=== PATIENT | female | born 1990 | race Two or more races ===

== ENCOUNTER 2016-10-30 13:06 | Emergency (ER) | payer MEDICAID, OTHER ==
[~2016-10-30] VITALS: Ht 152.4 cm; Wt 76.5 kg
[2016-10-30 13:20] VITALS: BP 121/69; PULSE 101; RESP 16; TEMP 98.9; O2SAT 99
[2016-10-30] MEDS ORDERED: SODIUM CHLOR 0.9% 1000 ML INJ 1,000 ML IV SCH (13:46)
--- NOTE | 2016-10-30 13:57 | PD ---
HPI Chief Complaint: Abdominal Pain Time Seen by Provider: 13:53 Travel History International Travel<30 days: No Contact w/Intl Traveler<30days: No Traveled to known affect area: No History of Present Illness HPI 26-year-old female that presents to the ED for evaluation of abdominal pain, diarrhea and nausea. Per patient she's had this since yesterday. Per patient she has a history of IBS and she's used to pain but does feels little different. Per patient she has pain on her right shoulder to wrist all the way down to her back. Per patient she denies any heavy activities. Per patient the pain feels like a muscle spasm on the back which also has pain below the breasts bilaterally as well as on the left flank. Patient points to the left abdomen as area of pain. Mostly on the upper quadrants. She denies any chest pain. She denies any vomiting. Per patient she does not know she is as she is usually irregular but she does not use protection. She does not believe that she is. She has no allergies to medication. She's not taken anything for this. Per patient she has not vomited but the diarrhea is liquidy. She denies any urinary problems. No vaginal discharge or bleeding. Per patient her last nostril. Was a month ago and he was slight but this is her normal as she is usually is very irregular. PFSH Past Medical History Hx Anticoagulant Therapy: No Cardiovascular Problems: No Chemotherapy: No Cerebrovascular Accident: No Diabetes: No Respiratory: No ?: Unknown LMP: irregular period, had one last month Past Surgical History Hysterectomy: No Social History Alcohol Use: No Tobacco Use: No Substance Use: No Allergies-Medications (Allergen,Severity, Reaction): Coded Allergies: No Known Allergies (Unverified , 10/30/16) Reported Meds & Prescriptions Reported Meds & Active Scripts Active Plus Iron 29-1 mg ( Vit-Iron Carbonyl) 1 Tab Tab 1 Tab PO DAILY Reglan (Metoclopramide HCl) 5 Mg Tab 5 Mg PO QID PRN Reported Omeprazole 20 Mg Tab 20 Mg PO DAILY Dicyclomine (Dicyclomine HCl) 10 Mg Cap 10 Mg PO QID Review of Systems Except as stated in HPI: all other systems reviewed are Neg Physical Exam Narrative GENERAL: SKIN: Warm and dry. HEAD: Atraumatic. Normocephalic. EYES: Pupils equal and round. No scleral icterus. No injection or drainage. ENT: No nasal bleeding or discharge. Mucous membranes pink and moist. Tongue is midline. No uvula deviation. NECK: Trachea midline. No JVD. CARDIOVASCULAR: Regular rate and rhythm. No murmurs, S3, S4. RESPIRATORY: No accessory muscle use. Clear to auscultation. Breath sounds equal bilaterally. GASTROINTESTINAL: Abdomen soft, non-tender, nondistended. Hepatic and splenic margins not palpable. MUSCULOSKELETAL: Extremities without clubbing, cyanosis, or edema. No obvious deformities. Full range of motion of the upper and lower extremities bilaterally. 2+ pulses bilaterally. NEUROLOGICAL: Awake and alert. No obvious cranial nerve deficits. Motor grossly within normal limits. Five out of 5 muscle strength in the arms and legs. Normal speech. PSYCHIATRIC: Appropriate mood and affect; insight and judgment normal. Data Data Last Documented VS Vital Signs Date Time Temp Pulse Resp B/P Pulse Ox O2 Delivery O2 Flow Rate FiO2 10/30/16 13:20 98.9 101 16 121/69 99 Orders Complete Blood Count With Diff (10/30/16 13:46) Comprehensive Metabolic Panel (10/30/16 13:46) Lipase (10/30/16 13:46) Ua Includes Microscopic (10/30/16 13:46) Beta Hcg (Quant/Titer) (10/30/16 13:46) Magnesium (Mg) (10/30/16 13:46) Iv Access Insert/Monitor (10/30/16 13:46) Complete Rh (10/30/16 13:46) Us Pelvis (Ques Pr/Ect)W Trans (10/30/16 ) Sodium Chlor 0.9% 1000 Ml Inj (Ns 1000 M (10/30/16 13:46) Metoclopramide Inj (Reglan Inj) (10/30/16 14:00) Labs Laboratory Tests Test 10/30/16 10/30/16 13:45 14:00 Urine Color YELLOW Urine Turbidity HAZY Urine pH 5.5 Urine Specific [place] 1.026 Urine Protein TRACE mg/dL Urine Glucose (UA) NEG mg/dL Urine Ketones NEG mg/dL Urine Occult Blood NEG Urine Nitrite NEG Urine Bilirubin NEG Urine Urobilinogen LESS THAN 2.0 MG/DL Urine Leukocyte Esterase NEG Urine RBC LESS THAN 1 /hpf Urine WBC 1 /hpf Urine Squamous Epithelial 6 /hpf Cells Urine Bacteria RARE /hpf Urine Mucus FEW /lpf White Blood Count 9.4 TH/MM3 Red Blood Count 4.76 MIL/MM3 Hemoglobin 14.0 GM/DL Hematocrit 39.7 % Mean Corpuscular Volume 83.5 FL Mean Corpuscular Hemoglobin 29.4 PG Mean Corpuscular Hemoglobin 35.2 % Concent Red Cell Distribution Width 11.9 % Platelet Count 196 TH/MM3 Mean Platelet Volume 9.7 FL Neutrophils (%) (Auto) 88.0 % Lymphocytes (%) (Auto) 7.5 % Monocytes (%) (Auto) 4.0 % Eosinophils (%) (Auto) 0.3 % Basophils (%) (Auto) 0.2 % Neutrophils # (Auto) 8.3 TH/MM3 Lymphocytes # (Auto) 0.7 TH/MM3 Monocytes # (Auto) 0.4 TH/MM3 Eosinophils # (Auto) 0.0 TH/MM3 Basophils # (Auto) 0.0 TH/MM3 CBC Comment DIFF FINAL Differential Comment Sodium Level 138 MEQ/L Potassium Level 3.3 MEQ/L Chloride Level 103 MEQ/L Carbon Dioxide Level 24.0 MEQ/L Anion Gap 11 MEQ/L Blood Urea Nitrogen 8 MG/DL Creatinine 0.75 MG/DL Estimat Glomerular Filtration 92 ML/MIN Rate Random Glucose 85 MG/DL Calcium Level 8.7 MG/DL Magnesium Level 1.7 MG/DL Total Bilirubin 0.7 MG/DL Aspartate Amino Transf 15 U/L (AST/SGOT) Alanine Aminotransferase 21 U/L (ALT/SGPT) Alkaline Phosphatase 74 U/L Total Protein 7.8 GM/DL Albumin 3.8 GM/DL Lipase 114 U/L Human Chorionic Gonadotropin, 1465 MIU/ML Quant Blood Type O POSITIVE Rho(D) Type POSITIVE MDM Medical Decision Making Medical Screen Exam Complete: Yes Emergency Medical Condition: Yes Medical Record Reviewed: Yes Interpretation(s) CBC & BMP Diagram 10/30/16 14:00 LFts WNl Beta in the 1000s UA negative US shows no obvious UTP, cannot exclude ectopic per radiologist Differential Diagnosis versus ectopic versus gastroenteritis versus pancreatitis versus viral illness Narrative Course 26-year-old female that presents to the ED for evaluation of abdominal pain and nausea and diarrhea. Patient was properly examined and was found to have signs and symptoms of unclear etiology at this time. Patient had a urine test before out of one in the room and it was positive. Patient was told that she is . Because of the area of her pain I do recommend ultrasound as well as blood work to make sure there is no sign of ectopic although this is less likely as most of her pain is in the upper quadrants. Labs and imaging were essentially unremarkable. Ultrasound showed no obvious gestational sac but possible cyst on the uterus. Cannot rule out ectopic. Patient does have a cyst in the right ovary but nothing on the left. Most of the patient's pain is on the left side. No pain on the right side. Possible ectopic again cannot be rule out. Because of this patient was told results and was told that she needs to come back in 2 days for recheck of beta. Patient is in agreement with this plan. Patient was told that if anything worsens she is to come back to the ED. Patient will be sent home with prescriptions for per now vitamins as well as Reglan to use for nausea only if needed. He was instructed to take Tylenol. See ED worsening symptoms. Diagnosis Primary Impression: Qualified Code: Z3A.01 - Less than 8 weeks gestation of Additional Impression: Gastritis Qualified Code: K29.00 - Acute gastritis without hemorrhage, unspecified gastritis type Patient Instructions: General Instructions Additional Instructions: Recheck in 48 hours. Take medications only if needed. Follow up with PCP. See ED worsening symptoms Med/Other Pt SpecificInfo: Prescription(s) given Scripts Vit-Iron Carbonyl ( Plus Iron 29-1 mg)1 Tab Tab1 Tab PO DAILY #30 TAB Ref 0 Prov:Jose Miguel Stoner MD 10/30/16 Metoclopramide (Reglan)5 Mg Tab5 Mg PO QID PRN (NAUSEA) #14 TAB Ref 0 Prov:Jose Miguel Stoner MD 10/30/16 Disposition: 01 DISCHARGE HOME Condition: Stable Omkar Jack October 30, 2016 13:57
[2016-10-30] MEDS ORDERED: METOCLOPRAMIDE HCL 10 MG/2 ML VIAL IV PUSH ONE (14:00)
[2016-10-30 14:20] LABS: AUTOMATED NEUTROPHIL # 8.3 TH/MM3 (1.8-7.7); BASOPHIL % 0.2 % (0.0-2.0); EOSINOPHIL % 0.3 % (0.0-4.0); HEMATOCRIT 39.7 % (35.0-46.0); HEMO FLAGS DIFF FINAL; LYMPH % 7.5 % (9.0-44.0); LYMPHOCYTE # 0.7 TH/MM3 (1.0-4.8); MEAN CELL VOLUME 83.5 FL (80.0-100.0); MEAN CORPUSCULAR HEMOGLOBIN 29.4 PG (27.0-34.0); MEAN CORPUSCULAR HGB CONC 35.2 % (32.0-36.0); PLATELET COUNT 196 TH/MM3 (150-450); RED BLOOD COUNT 4.76 MIL/MM3 (4.00-5.30); RED CELL DISTRIBUTION WIDTH 11.9 % (11.6-17.2); WHITE BLOOD COUNT 9.4 TH/MM3 (4.0-11.0)
[2016-10-30 14:25] LABS: BACTERIA, URINE RARE /hpf; BLOOD, URINE NEG (NEG); GLUCOSE,URINE NEG (NEG); KETONE, URINE NEG (NEG); MUCUS URINE FEW /lpf (OCC); NITRITE,URINE NEG (NEG); PH, URINE 5.5 (5.0-8.5); SQUAMOUS EPITHELIAL CELL URINE 6 /hpf (0-5); URINE COLOR YELLOW (YELLW/STRAW)
[2016-10-30] MEDS ORDERED: DICY10CA12 PO (14:32)
[2016-10-30] MEDS ORDERED: OMEP20TA PO (14:32)
[2016-10-30 14:36] LABS: ANION GAP 11 MEQ/L (5-15); AST (GOT) 15 U/L (15-37); BLOOD UREA NITROGEN 8 MG/DL (7-18); CHLORIDE 103 MEQ/L (98-107); GLOMERULAR FILTRATION RATE 92 ML/MIN (>89); MAGNESIUM 1.7 MG/DL (1.5-2.5); POTASSIUM 3.3 MEQ/L (3.5-5.1); SODIUM (NA) 138 MEQ/L (136-145)
[2016-10-30 14:53] LABS: ALKALINE PHOSPHATASE 74 U/L (45-117); ALT (GPT) 21 U/L (10-53); BETA HCG QUANT 1465 MIU/ML (0-5); TOTAL BILIRUBIN ADULT 0.7 MG/DL (0.2-1.0)
--- NOTE | 2016-10-30 16:50 | RADRPT ---
EXAM DATE/TIME: 10/30/2016 15:19 [facility] COMPARISON: No previous studies available for comparison. INDICATIONS : Pelvic pain with . LAB(S): Beta-hC MEDICAL HISTORY : . IBS. SURGICAL HISTORY : None. ENCOUNTER: Initial ACUITY: 1 day PAIN SCORE: 4/10 LOCATION: Bilateral pelvis MEASUREMENTS: UTERUS: 8.9 x 5.3 x 4.2 cm ENDOMETRIAL STRIPE: 13 mm RIGHT OVARY: 3.7 x 3.8 x 3.4 cm LEFT OVARY: 2.6 x 2.4 x 2.2 cm FREE FLUID: Yes. Trace amount in endocervical canal and posterior cul-de-sac. CROWN RUMP LENGTH: Non visualized. = WKS DAYS FHR: Non visualized. BPM FINDINGS: UTERUS: There is a small 0.3 cm cystic area seen within the endometrial cavity. This potentially could repre sent a gestational sac but is too small to confirm. A pseudogestational sac could have a similar zenia earance. There is a trace amount of fluid within the endocervical canal. RIGHT OVARY: There is a 2.0 x 2.0 x 1.5 cm simple cyst seen at the right ovary. LEFT OVARY: Ovary contains no mass or significant cystic lesion. MISCELLANEOUS: No free fluid. CONCLUSION: 1. An intrauterine gestation is not clearly confirmed. An ectopic cannot be ruled out. 2. There is a small 3 mm cystic area within the endometrial cavity which could potentially be a tiny gestational sac but again is too small to confirm as a gestational sac or not. Followup is recommen ded. 3. 2 cm simple cyst at the right ovary. This likely represents a corpus luteal cyst. This should a lso be followed. Apollo Palmer MD on October 30, 2016 at 16:41 Board Certified Radiologist. This report was verified electronically.
[2016-10-30] MEDS ORDERED: REGL5TAB PO (17:01)
[2016-10-30] MEDS ORDERED: PREN29TA PO (17:02)
--- NOTE | 2016-10-30 17:10 | PD ---
Data Data Last Documented VS Vital Signs Date Time Temp Pulse Resp B/P Pulse Ox O2 Delivery O2 Flow Rate FiO2 10/30/16 13:20 98.9 101 16 121/69 99 Orders Complete Blood Count With Diff (10/30/16 13:46) Comprehensive Metabolic Panel (10/30/16 13:46) Lipase (10/30/16 13:46) Ua Includes Microscopic (10/30/16 13:46) Beta Hcg (Quant/Titer) (10/30/16 13:46) Magnesium (Mg) (10/30/16 13:46) Iv Access Insert/Monitor (10/30/16 13:46) Complete Rh (10/30/16 13:46) Us Pelvis (Ques Pr/Ect)W Trans (10/30/16 ) Sodium Chlor 0.9% 1000 Ml Inj (Ns 1000 M (10/30/16 13:46) Metoclopramide Inj (Reglan Inj) (10/30/16 14:00) Labs Laboratory Tests Test 10/30/16 10/30/16 13:45 14:00 Urine Color YELLOW Urine Turbidity HAZY Urine pH 5.5 Urine Specific [place] 1.026 Urine Protein TRACE mg/dL Urine Glucose (UA) NEG mg/dL Urine Ketones NEG mg/dL Urine Occult Blood NEG Urine Nitrite NEG Urine Bilirubin NEG Urine Urobilinogen LESS THAN 2.0 MG/DL Urine Leukocyte Esterase NEG Urine RBC LESS THAN 1 /hpf Urine WBC 1 /hpf Urine Squamous Epithelial 6 /hpf Cells Urine Bacteria RARE /hpf Urine Mucus FEW /lpf White Blood Count 9.4 TH/MM3 Red Blood Count 4.76 MIL/MM3 Hemoglobin 14.0 GM/DL Hematocrit 39.7 % Mean Corpuscular Volume 83.5 FL Mean Corpuscular Hemoglobin 29.4 PG Mean Corpuscular Hemoglobin 35.2 % Concent Red Cell Distribution Width 11.9 % Platelet Count 196 TH/MM3 Mean Platelet Volume 9.7 FL Neutrophils (%) (Auto) 88.0 % Lymphocytes (%) (Auto) 7.5 % Monocytes (%) (Auto) 4.0 % Eosinophils (%) (Auto) 0.3 % Basophils (%) (Auto) 0.2 % Neutrophils # (Auto) 8.3 TH/MM3 Lymphocytes # (Auto) 0.7 TH/MM3 Monocytes # (Auto) 0.4 TH/MM3 Eosinophils # (Auto) 0.0 TH/MM3 Basophils # (Auto) 0.0 TH/MM3 CBC Comment DIFF FINAL Differential Comment Sodium Level 138 MEQ/L Potassium Level 3.3 MEQ/L Chloride Level 103 MEQ/L Carbon Dioxide Level 24.0 MEQ/L Anion Gap 11 MEQ/L Blood Urea Nitrogen 8 MG/DL Creatinine 0.75 MG/DL Estimat Glomerular Filtration 92 ML/MIN Rate Random Glucose 85 MG/DL Calcium Level 8.7 MG/DL Magnesium Level 1.7 MG/DL Total Bilirubin 0.7 MG/DL Aspartate Amino Transf 15 U/L (AST/SGOT) Alanine Aminotransferase 21 U/L (ALT/SGPT) Alkaline Phosphatase 74 U/L Total Protein 7.8 GM/DL Albumin 3.8 GM/DL Lipase 114 U/L Human Chorionic Gonadotropin, 1465 MIU/ML Quant Blood Type O POSITIVE Rho(D) Type POSITIVE MDM Supervised Visit with [facility]LENA: Yes Narrative Course I, Dr. Stoner, have reviewed the advance practice practitioner's documentation and am in agreement, met with the patient face to face, made the diagnosis, and the medical decision making was done by me. See his note for further details. Briefly this is a 26-year-old female with history of IBS who presents for evaluation of abdominal pain. Incidentally she was found to be . This is her first . Beta hCG is 1465. Pelvic ultrasound shows a cystic structure within the uterus which could either be an early IUP or sooner gestational sac. There is a cyst on the right ovary which is likely a corpus luteal cyst. On my assessment the patient reports that her pain is left lower quadrant. On exam there is mild left lower quadrant tenderness without peritoneal signs. At this point I believe she is stable for discharge home with return to the emergency department in 48 hours for repeat beta hCG. Patient informed on when to return to the emergency Department sooner. She verbalizes understanding and agreement with plan. Patient Instructions: General Instructions Departure Forms: Tests/Procedures Scripts Vit-Iron Carbonyl ( Plus Iron 29-1 mg)1 Tab Tab1 Tab PO DAILY #30 TAB Ref 0 Prov:Jose Miguel Stoner MD 10/30/16 Metoclopramide (Reglan)5 Mg Tab5 Mg PO QID PRN (NAUSEA) #14 TAB Ref 0 Prov:Jose Miguel Stoner MD 10/30/16 Disposition: DISCHARGE HOME Condition: Stable Jose Miguel Stoner MD October 30, 2016 17:10
== END 2016-10-30 17:33 | disposition home or self-care (01) ==
LOC: NEPD 13:06
DX: O99.611 Diseases of the digestive system complicating pregnancy, first trimester (principal); K29.00 Acute gastritis without bleeding; Z3A.01 Less than 8 weeks gestation of pregnancy
CPT/HCPCS: 76700; 76817; 80053; 81001; 83690; 83735; 84702; 85025; 86901; 96361; 96374; 99284; J2765; J7030

== ENCOUNTER 2016-11-01 15:23 | Emergency (ER) | payer MEDICAID, OTHER ==
[~2016-11-01] VITALS: Ht 152.4 cm; Wt 75.0 kg
[~2016-11-01 15:23] MED LIST: DICY10CA12 PO; OMEP20TA PO; PREN29TA PO; REGL5TAB PO
[2016-11-01 15:24] VITALS: BP 134/87; PULSE 84; RESP 18; TEMP 97.8; O2SAT 99
[2016-11-01 17:18] LABS: BETA HCG QUANT 3567 MIU/ML (0-5)
--- NOTE | 2016-11-01 17:33 | PD ---
HPI . Follow-up of Chief Complaint: Related Problem Time Seen by Provider: 17:25 Travel History International Travel<30 days: No Contact w/Intl Traveler<30days: No Traveled to known affect area: No History of Present Illness HPI Patient presents stating that she was here 2 days ago and diagnosed with . Not know that she was at that time. She subsequently had a quantitative hCG of 1465. Ultrasound showed a possible tiny gestational sac. She was instructed to follow-up today for a repeat beta hCG. She was here 2 days ago for abdominal pain which she thought was probably secondary to her IBS. Her abdominal pain is much improved. She describes minimal suprapubic discomfort at this time. PFSH Past Medical History Hx Anticoagulant Therapy: No Cardiovascular Problems: No Chemotherapy: No Cerebrovascular Accident: No Diabetes: No Diminished Hearing: No Gastrointestinal Disorders: Yes (IBS W/A SPASTIC COLON) Respiratory: No ?: Past Surgical History Hysterectomy: No Social History Alcohol Use: No Tobacco Use: No Substance Use: No Allergies-Medications (Allergen,Severity, Reaction): Coded Allergies: No Known Allergies (Unverified , 10/30/16) Reported Meds & Prescriptions Reported Meds & Active Scripts Active Plus Iron 29-1 mg ( Vit-Iron Carbonyl) 1 Tab Tab 1 Tab PO DAILY Reglan (Metoclopramide HCl) 5 Mg Tab 5 Mg PO QID PRN Reported Omeprazole 20 Mg Tab 20 Mg PO DAILY Dicyclomine (Dicyclomine HCl) 10 Mg Cap 10 Mg PO QID Review of Systems Except as stated in HPI: all other systems reviewed are Neg Gastrointestinal: Positive: Abdominal Pain Genitourinary: No: Urgency, Frequency, Dysuria, Discharge, Vaginal Bleeding Physical Exam Narrative GENERAL: Awake and alert and in no acute distress. SKIN: Warm and dry. HEAD: Atraumatic. Normocephalic. EYES: Pupils equal and round. NECK: Trachea midline. CARDIOVASCULAR: Regular rate and rhythm. RESPIRATORY: No accessory muscle use. ABDOMEN: Soft with minimal suprapubic discomfort. MUSCULOSKELETAL: No obvious deformities. No edema. NEUROLOGICAL: Awake and alert. No obvious cranial nerve deficits. Motor grossly within normal limits. Normal speech. PSYCHIATRIC: Appropriate mood and affect; insight and judgment normal. Data Data Last Documented VS Vital Signs Date Time Temp Pulse Resp B/P Pulse Ox O2 Delivery O2 Flow Rate FiO2 11/01/16 15:24 97.8 84 18 134/87 99 Orders Beta Hcg (Quant/Titer) (11/01/16 16:08) Labs Laboratory Tests Test 11/01/16 16:14 Human Chorionic Gonadotropin, 3567 MIU/ML Quant MDM Medical Decision Making Medical Screen Exam Complete: Yes Emergency Medical Condition: Yes Differential Diagnosis Differential diagnosis of pelvic pain includes but is not limited to UTI, PID, ectopic , spontaneous AB, constipation, viral illness Narrative Course Patient presents for follow-up of positive test. Laboratory Tests Test 11/01/16 16:14 Human Chorionic Gonadotropin, 3567 MIU/ML Quant Quantitative hCG has more than doubled indicating a probable viable . The patient will be discharged to home with instructions to follow-up with OB. Diagnosis Primary Impression: Qualified Code: Z3A.01 - Less than 8 weeks gestation of Patient Instructions: Abdominal Pain in (ED), General Instructions Additional Instructions: Your test today is 3,567. Please follow up with an OB doctor of your choice. Disposition: DISCHARGE HOME Condition: Stable Phuong Dinero MD November 01, 2016 17:32
[2016-11-01 18:01] VITALS: BP 132/65
== END 2016-11-01 18:09 | disposition home or self-care (01) ==
LOC: NEPD 15:23
DX: O26.91 Pregnancy related conditions, unspecified, first trimester (principal); R10.2 Pelvic and perineal pain; Z3A.01 Less than 8 weeks gestation of pregnancy
CPT/HCPCS: 84702; 99283